=== PATIENT | male | born 1965 | race Caucasian/White ===

== ENCOUNTER 2016-08-06 12:56 | Emergency (ER) | payer OTHER ==
[~2016-08-06] VITALS: Ht 170.2 cm; Wt 65.7 kg
[2016-08-06 14:04] LABS: HEMATOCRIT 45.6 % (38.0-50.0); MCHC 35.1 G/DL (30.0-36.0); MCV 88.4 FL (86-99); MEAN PLAT.VOLUME 10.1 uM^3 (9.0-12.4); PLATELET COUNT 210 K/uL (156-360); RBC DIS.WIDTH-CV 12.8 % (11.8-14.6); RBC DIS.WIDTH-SD 41.5 % (39-53); RED BLOOD COUNT 5.16 M/uL (4.00-5.50); WHITE BLOOD COUNT 10.1 K/uL (4.1-10.2)
[2016-08-06 14:12] LABS: CHLORIDE 106 mEq/L (99-109); POTASSIUM 4.6 mEq/L (3.7-5.4); SODIUM 138 mEq/L (136-147)
[2016-08-06 14:15] LABS: GLUCOSE 146 mg/dL (70-99)
[2016-08-06 14:16] LABS: ANION GAP 14 MEQ/L (2-14)
[2016-08-06 14:17] LABS: TOTAL BILIRUBIN 1.3 mg/dL (0.0-1.0)
[2016-08-06 14:18] LABS: ALKALINE PHOSPHATASE 86 IU/L (3-129); GFR ESTIMATE (CALCULATED) > 59 mL/min/
[2016-08-06 14:19] LABS: UREA NITROGEN (BUN) 9 mg/dL (9-23)
[2016-08-06 16:35] LABS: LIPASE 27 U/L (1.0-51.0)
[2016-08-06] MEDS ORDERED: OMEPRAZOLE40 M1 PO (17:57)
[2016-08-06] MEDS ORDERED: ZOFRAN ODT4 MG PO (17:57)
[2016-08-06 18:20] VITALS: BP 197/97
== END 2016-08-06 18:20 | disposition home or self-care (01) ==
LOC: EME 12:56
DX: R10.13 Epigastric pain (principal); R10.11 Right upper quadrant pain; F17.200 Nicotine dependence, unspecified, uncomplicated; J44.9 Chronic obstructive pulmonary disease, unspecified; Z91.041 Radiographic dye allergy status
CPT/HCPCS: 76705; 80053; 81003; 83690; 85027; 99281; 99284; J3010; Q0169